=== PATIENT | female | born 1975 | race Caucasian/White ===

== ENCOUNTER 2021-07-23 13:22 | Emergency (ER) | payer SELFPAY ==
[2021-07-23 14:40] LABS: #Basophils 0.1 10x3/uL (0.0-0.2); #Eosinphils 0.1 10x3/uL (0.0-0.5); #Neutrophils 3.8 10x3/uL (1.5-8.4); %Basophils 0.7 % (0.0-2.0); %Eosinophils 0.7 % (0.0-6.0); %Lymphocytes 28.7 % (18.0-47.0); %Monocytes 14.5 % (0.0-10.0); %Neutrophils 55.3 % (40.0-75.0); Hemoglobin 12.2 g/dL (12.0-15.5); Mean Corpuscular HGB CONC 32.8 g/dL (32.0-36.0); Mean Corpuscular Hemoglobin 28.1 pg (27.0-33.0); Mean Corpuscular Volume 85.7 fl (81.6-98.3); Mean Platelet Volume 9.9 fl (7.4-10.4); Platelet Count 272 10x3/uL (150-450); RBC Distribution Width 13.3 % (11.5-14.5); Red Blood Cell (RBC) Count 4.34 10x6/uL (3.90-5.03); White Blood Cell (WBC) Count 6.8 10x3/uL (3.5-10.5)
[2021-07-23 14:41] LABS: BHCG - Serum Negative (NEGATIVE); Pregs Control Background? CLEAR/WHITE (CLR/WHITE); Pregs Control Bar Appear? YES (CONTROL BAR)
[2021-07-23 14:45] LABS: Acetaminophen Less than 6.0 mcg/mL (10.0-30.0); Alcohol Less than 10 mg/dL (Less than 10); Salicylate Less than 8.0 mg/dL (15.0-30.0)
[2021-07-23 14:47] LABS: ALT (SGPT) 41 U/L (8-55); AST (SGOT) 31 U/L (5-34); Albumin 4.1 g/dL (3.5-5.0); Alkaline Phosphatase 53 U/L (40-110); Anion Gap 13 mmol/L (10-20); BUN (Urea Nitrogen) 18 mg/dL (7.0-18.7); Bilirubin, Total 0.5 mg/dL (0.2-1.2); Calc. Creatinine Clearance 0 mL/min (70-130); Calcium 8.9 mg/dL (7.8-10.44); Carbon Dioxide 26 mmol/L (22-29); Chloride 104 mmol/L (98-107); Globulin 2.6 g/dL (2.4-3.5); Glucose 95 mg/dL (70-105); Potassium 3.5 mmol/L (3.5-5.1); Protein, Total 6.7 g/dL (6.0-8.3); Sodium 139 mmol/L (136-145)
[2021-07-23] MEDS ORDERED: Lorazepam 2 MG/ML VIAL ONE (14:50)
[2021-07-23] MEDS ORDERED: Haloperidol Lactate 5 MG/ML VIAL ONE (15:19)
[2021-07-23] MEDS ORDERED: diphenhydrAMINE 50 MG/ML VIAL ONE (15:20)
[2021-07-23 16:01] LABS: Bilirubin Neg (Negative); Blood, Urine 10 (Negative); Clarity Cloudy (Clear); Glucose, Urine (Dipstick) Normal (Negative); Ketone, Urine 5 mg/dL (Negative); Leukocyte 100 (Negative); Nitrite Positive (Negative); Protein, Urine (Dipstick) 15 mg/dl (Neg-Trace); Specific Gravity, Urine 1.025 (1.002-1.036)
[2021-07-23 16:03] LABS: Amphetamine Detected (NotDetected); Barbiturates Screen Not Detected (NotDetected); Benzodiazepine Screen Not Detected (NotDetected); Cocaine Metabolite Screen Not Detected (NotDetected); Methadone Not Detected (NotDetected); Methamphetamine Detected (NotDetected); Opiate Screen Not Detected (NotDetected); Oxycodone Screen Not Detected (NotDetected); Phencyclidine (PCP) Not Detected (NotDetected); THC/Cannabinoid Screen Detected (NotDetected); Tricyclic Screen Not Detected (NotDetected)
[2021-07-23 16:12] LABS: Bacteria/HPF 4+ HPF (None Seen); RBC/HPF None Seen HPF (0-3)
[2021-07-23] MEDS ORDERED: cefTRIAXone\\ROCEPHIN 1 GM VIAL ONE (16:26)
[2021-07-23 23:08] LABS: SARS-CoV-2 PCR by NAA Not Detected (NotDetected)
[2021-07-24] MEDS ORDERED: cefTRIAXone\\ROCEPHIN 1 GM VIAL ONE (12:50)
[2021-07-24] MEDS ORDERED: Nicotine 14 MG PATCH ONE (12:52)
[2021-07-24] MEDS ORDERED: Lorazepam 2 MG/ML VIAL ONE (17:36)
[2021-07-25] MEDS ORDERED: Lorazepam 1 MG TAB ONE ×2 (04:57→17:06)
[2021-07-25] MEDS ORDERED: Nicotine 14 MG PATCH ONE (10:28)
[2021-07-25] MEDS ORDERED: Acetaminophen 500 MG TAB ONE (11:06)
[2021-07-25] MEDS ORDERED: Lorazepam 2 MG/ML VIAL ONE (13:59)
== END 2021-07-25 18:04 ==
LOC: CSHERS 13:22
DX: F23 Brief psychotic disorder (principal); F30.9 Manic episode, unspecified; F15.10 Other stimulant abuse, uncomplicated; F17.210 Nicotine dependence, cigarettes, uncomplicated
CPT/HCPCS: 80053; 80306; 80307; 81003; 81015; 84703; 85025; 93005; J0696; J1200; J1630; J2060; U0003; U0005

== ENCOUNTER 2024-11-21 14:05 | Emergency (ER) | payer OTHER | END 2024-11-21 16:07 | disposition home or self-care (01) | LOC: CSHERS 14:05 | DX: T67.8XXA Other effects of heat and light, initial encounter (principal); E86.0 Dehydration; F17.210 Nicotine dependence, cigarettes, uncomplicated; Z59.00 Homelessness unspecified; X30.XXXA Exposure to excessive natural heat, initial encounter | CPT/HCPCS: 99284 ==